=== PATIENT | female | born 1985 | race Caucasian/White ===

== ENCOUNTER 2018-03-29 14:41 | Outpatient (CLI) | payer BC, MEDICAID ==
[2018-03-29 15:40] LABS: APPEARANCE,URINE SLIGHTLY-CLOUDY; BILIRUBIN,URINE NEGATIVE (NEGATIVE); COLOR,URINE YELLOW; GLUCOSE, URINE NEGATIVE (NEGATIVE); KETONES,URINE NEGATIVE (NEGATIVE); LEUKOCYTE ESTERASE,URINE NEGATIVE (NEGATIVE); NITRITE,URINE NEGATIVE (NEGATIVE); PROTEIN,URINE NEGATIVE (NEGATIVE); URINE SPECIFIC GRAVITY 1.013
[2018-03-29 15:43] LABS: ABSOLUTE BASOPHILS # (AUTO) 0.1 10^3/uL (0.0-0.2); ABSOLUTE EOSINOPHILS # (AUTO) 0.2 10^3/uL (0.0-0.6); ABSOLUTE LYMPHOCYTES (AUTO) 1.6 10^3/uL (0.5-4.7); ABSOLUTE MONOCYTES (AUTO) 0.6 10^3/uL (0.1-1.4); ABSOLUTE NEUT (AUTO) 9.2 10^3/uL (1.7-8.2); BASOPHILS % (AUTO) 1.1 % (0-2); EOSINOPHILS % (AUTO) 1.8 % (0-6); HEMATOCRIT 36.9 % (36.0-47.0); HEMOGLOBIN 12.9 g/dL (12.0-15.5); LYMPHOCYTES % (AUTO) 13.3 % (13-45); MEAN CORPUSCULAR HEMOGLOBIN 31.9 pg (27.0-33.4); MEAN CORPUSCULAR HGB CONC 35.1 g/dL (32.0-36.0); MEAN CORPUSCULAR VOLUME 91 fl (80-97); MONOCYTES % (AUTO) 4.9 % (3-13); PLATELET COUNT 263 10^3/uL (150-450); RED BLOOD COUNT 4.05 10^6/uL (3.72-5.28); RED CELL DISTRIBUTION WIDTH 13.8 % (11.5-14.0); SEGMENTED NEUTROPHILS % (AUTO) 78.9 % (42-78); TOTAL CELLS COUNTED % (AUTO) 100 %; WHITE BLOOD COUNT 11.7 10^3/uL (4.0-10.5)
[2018-03-29 15:47] LABS: URINE AMPHETAMINES SCREEN NEGATIVE; URINE BARBITURATES SCREEN NEGATIVE; URINE BENZODIAZEPINES SCREEN NEGATIVE; URINE COCAINE SCREEN NEGATIVE; URINE MARIJUANA (THC) SCREEN NEGATIVE; URINE METHADONE SCREEN NEGATIVE; URINE PHENCYCLIDINE SCREEN NEGATIVE
[2018-03-29 15:51] LABS: UR PRO/CREAT RATIO RESULT 0.2 mg/mg (0.0-0.2); URINE CREATININE 83.7 mg/dL (16-327); URINE PROTEIN 12.9 mg/dL (<12)
[2018-03-29 15:58] LABS: ALANINE AMINOTRANSFERASE 24 U/L (9-52); ALBUMIN 3.2 g/dL (3.5-5.0); ALKALINE PHOSPHATASE 161 U/L (38-126); ANION GAP 10 (5-19); ASPARTATE AMINO TRANSFERASE 15 U/L (14-36); BILIRUBIN,DIRECT 0.1 mg/dL (0.0-0.4); BILIRUBIN,TOTAL 0.1 mg/dL (0.2-1.3); BLOOD UREA NITROGEN 3 mg/dL (7-20); CALCIUM 10.1 mg/dL (8.4-10.2); CARBON DIOXIDE 24 mmol/L (22-30); CHLORIDE 108 mmol/L (98-107); GLUCOSE 102 mg/dL (75-110); LDH 360 U/L (313-618); POTASSIUM 3.8 mmol/L (3.6-5.0); SODIUM 141.6 mmol/L (137-145); URIC ACID 4.8 mg/dL (2.5-6.2)
== END 2018-03-29 16:40 | disposition home or self-care (01) ==
LOC: LC 14:41
PROVIDERS: ATTEND Obstetrics & Gynecology
PROC: 4A1HXCZ Monitoring of Products of Conception, Cardiac Rate, External Approach (ICD-10-PCS; principal; 2018-03-29)
DX: O16.2 Unspecified maternal hypertension, second trimester (principal); Z3A.26 26 weeks gestation of pregnancy
CPT/HCPCS: 36415; 80053; 80307; 81001; 82570; 83615; 84156; 84550; 85025

== ENCOUNTER 2018-05-23 17:14 | Outpatient (CLI) | payer BC, MEDICAID ==
[2018-05-23 17:50] LABS: ABSOLUTE BASOPHILS # (AUTO) 0.1 10^3/uL (0.0-0.2); ABSOLUTE EOSINOPHILS # (AUTO) 0.1 10^3/uL (0.0-0.6); ABSOLUTE LYMPHOCYTES (AUTO) 1.8 10^3/uL (0.5-4.7); ABSOLUTE MONOCYTES (AUTO) 0.4 10^3/uL (0.1-1.4); BASOPHILS % (AUTO) 1.1 % (0-2); EOSINOPHILS % (AUTO) 1.4 % (0-6); HEMATOCRIT 41.5 % (36.0-47.0); HEMOGLOBIN 14.7 g/dL (12.0-15.5); LYMPHOCYTES % (AUTO) 16.9 % (13-45); MEAN CORPUSCULAR HEMOGLOBIN 32.6 pg (27.0-33.4); MEAN CORPUSCULAR HGB CONC 35.4 g/dL (32.0-36.0); MEAN CORPUSCULAR VOLUME 92 fl (80-97); MONOCYTES % (AUTO) 4.2 % (3-13); PLATELET COUNT 219 10^3/uL (150-450); RED BLOOD COUNT 4.51 10^6/uL (3.72-5.28); RED CELL DISTRIBUTION WIDTH 13.9 % (11.5-14.0); SEGMENTED NEUTROPHILS % (AUTO) 76.4 % (42-78); TOTAL CELLS COUNTED % (AUTO) 100 %; WHITE BLOOD COUNT 10.5 10^3/uL (4.0-10.5)
[2018-05-23 17:55] LABS: APPEARANCE,URINE CLEAR; BILIRUBIN,URINE NEGATIVE (NEGATIVE); COLOR,URINE YELLOW; GLUCOSE, URINE NEGATIVE (NEGATIVE); KETONES,URINE NEGATIVE (NEGATIVE); LEUKOCYTE ESTERASE,URINE NEGATIVE (NEGATIVE); NITRITE,URINE NEGATIVE (NEGATIVE); PROTEIN,URINE 30 mg/dL (NEGATIVE); URINE SPECIFIC GRAVITY 1.013; UROBILINOGEN,URINE NEGATIVE mg/dL (<2.0)
[2018-05-23 18:09] LABS: ALANINE AMINOTRANSFERASE 25 U/L (9-52); ALBUMIN 3.1 g/dL (3.5-5.0); ALKALINE PHOSPHATASE 301 U/L (38-126); ANION GAP 9 (5-19); ASPARTATE AMINO TRANSFERASE 28 U/L (14-36); BILIRUBIN,DIRECT 0.2 mg/dL (0.0-0.4); BILIRUBIN,TOTAL 0.3 mg/dL (0.2-1.3); BLOOD UREA NITROGEN 8 mg/dL (7-20); CALCIUM 9.8 mg/dL (8.4-10.2); CARBON DIOXIDE 22 mmol/L (22-30); CHLORIDE 105 mmol/L (98-107); GLUCOSE 83 mg/dL (75-110); POTASSIUM 3.9 mmol/L (3.6-5.0); SODIUM 135.9 mmol/L (137-145); TOTAL PROTEIN 6.3 g/dL (6.3-8.2); URIC ACID 6.1 mg/dL (2.5-6.2)
[2018-05-23 18:09] LABS: URINE AMPHETAMINES SCREEN NEGATIVE; URINE BARBITURATES SCREEN NEGATIVE; URINE BENZODIAZEPINES SCREEN NEGATIVE; URINE COCAINE SCREEN NEGATIVE; URINE MARIJUANA (THC) SCREEN NEGATIVE; URINE METHADONE SCREEN NEGATIVE; URINE PHENCYCLIDINE SCREEN NEGATIVE
[2018-05-23 18:19] LABS: UR PRO/CREAT RATIO RESULT 0.5 mg/mg (0.0-0.2); URINE CREATININE 67.9 mg/dL (16-327); URINE PROTEIN 36.7 mg/dL (<12)
--- NOTE | 2018-05-23 18:43 | Non Stress Test Report ---
Non Stress Test Datetime Report Generated by CPN: 05/23/2018 18:43 DEMOGRAPHIC Test Number: 1 EGA NST: 34.3 INDICATION Indication for Study: Ordered by Provider VITAL SIGNS RESP - NST: 16 MONITORING Monitor Explained: Monitor Explained; Test Explained; Patient Verbalized Understanding Time on Monitor: 05/23/2018 17:31 Time off Monitor: 05/23/2018 18:11 NST Duration: 40 NST INTERVENTIONS Physician Notified NST: Emmel, CNM BABY A: [id number] BABY A Movement : Present Contraction Frequency : 0 FHR Baseline : 120 Accelerations : 15X15 Decelerations : None Variability : Moderate 6-25bpm NST Review: Meets Criteria for Reactive NST NST Review and Verified By : YUDITH Fotser Results: Reactive NST REPORT Report Trigger: Send Report
[2018-05-24 20:07] LABS: URINE PROTEIN 39.3 mg/dL (<12)
[2018-05-24 20:10] LABS: 24 HOUR URINE PROTEIN RESULT 872 mg/day (42-225); 24 HR URINE CREAT RESULT 1.2 mg/day (0.8-2.0)
== END 2018-05-23 18:38 | disposition home or self-care (01) ==
LOC: LC 17:14
PROVIDERS: ATTEND Obstetrics & Gynecology Gynecology
PROC: 4A1HXCZ Monitoring of Products of Conception, Cardiac Rate, External Approach (ICD-10-PCS; principal; 2018-05-23)
DX: O16.3 Unspecified maternal hypertension, third trimester (principal); Z3A.34 34 weeks gestation of pregnancy
CPT/HCPCS: 36415; 59025; 80053; 80307; 81001; 82570; 84156; 84550; 85025

== ENCOUNTER 2018-06-05 12:06 | Inpatient (IN) | payer BC, MEDICAID ==
[2018-06-05 12:59] LABS: APPEARANCE,URINE CLEAR; BILIRUBIN,URINE NEGATIVE (NEGATIVE); COLOR,URINE YELLOW; GLUCOSE, URINE NEGATIVE (NEGATIVE); KETONES,URINE NEGATIVE (NEGATIVE); LEUKOCYTE ESTERASE,URINE NEGATIVE (NEGATIVE); NITRITE,URINE NEGATIVE (NEGATIVE); PROTEIN,URINE 100 mg/dL (NEGATIVE); URINE SPECIFIC GRAVITY 1.009; UROBILINOGEN,URINE NEGATIVE mg/dL (<2.0)
[2018-06-05 13:18] LABS: ABSOLUTE EOSINOPHILS # (AUTO) 0.1 10^3/uL (0.0-0.6); ABSOLUTE LYMPHOCYTES (AUTO) 1.3 10^3/uL (0.5-4.7); ABSOLUTE MONOCYTES (AUTO) 0.4 10^3/uL (0.1-1.4); ABSOLUTE NEUT (AUTO) 5.9 10^3/uL (1.7-8.2); BASOPHILS % (AUTO) 0.5 % (0-2); EOSINOPHILS % (AUTO) 1.5 % (0-6); HEMOGLOBIN 14.2 g/dL (12.0-15.5); LYMPHOCYTES % (AUTO) 17.3 % (13-45); MEAN CORPUSCULAR HGB CONC 34.7 g/dL (32.0-36.0); MEAN CORPUSCULAR VOLUME 92 fl (80-97); MONOCYTES % (AUTO) 5.2 % (3-13); PLATELET COUNT 191 10^3/uL (150-450); RED BLOOD COUNT 4.45 10^6/uL (3.72-5.28); RED CELL DISTRIBUTION WIDTH 13.4 % (11.5-14.0); SEGMENTED NEUTROPHILS % (AUTO) 75.5 % (42-78); TOTAL CELLS COUNTED % (AUTO) 100 %; WHITE BLOOD COUNT 7.8 10^3/uL (4.0-10.5)
[2018-06-05 13:19] LABS: URINE AMPHETAMINES SCREEN NEGATIVE; URINE BARBITURATES SCREEN NEGATIVE; URINE BENZODIAZEPINES SCREEN NEGATIVE; URINE COCAINE SCREEN NEGATIVE; URINE MARIJUANA (THC) SCREEN NEGATIVE; URINE METHADONE SCREEN NEGATIVE; URINE PHENCYCLIDINE SCREEN NEGATIVE
[2018-06-05 13:23] LABS: URINE CREATININE 43.1 mg/dL (16-327); URINE PROTEIN 127.8 mg/dL (<12)
--- NOTE | 2018-06-05 13:34 | Non Stress Test Report ---
Non Stress Test Datetime Report Generated by CPN: 06/05/2018 13:34 DEMOGRAPHIC EGA NST: 36.2 INDICATION Indication for Study: Gestational Hypertension; Ordered by Provider VITAL SIGNS Temperature - NST: 98.7 Pulse - NST: 90 RESP - NST: 18 NBPSYS NST: 139 NBPDIA NST: 85 MONITORING Monitor Explained: Monitor Explained; Test Explained; Patient Verbalized Understanding Time on Monitor: 06/05/2018 12:30 Time off Monitor: 06/05/2018 13:26 NST Duration: 56 NST INTERVENTIONS NST Interventions: PO Hydration; Reposition Patient Physician Notified NST: J COLEY, CNM BABY A: [id number] BABY A Movement : Present Contraction Frequency : ONNE FHR Baseline : 125 Accelerations : 15X15 Decelerations : None Variability : Moderate 6-25bpm NST Review: Meets Criteria for Reactive NST NST Review and Verified By : Juan R Chavarria RN NSMiryam Results: Reactive NST REPORT Report Trigger: Send Report
[2018-06-05 13:47] LABS: ALANINE AMINOTRANSFERASE 23 U/L (9-52); ALBUMIN 2.8 g/dL (3.5-5.0); ALKALINE PHOSPHATASE 276 U/L (38-126); ANION GAP 8 (5-19); ASPARTATE AMINO TRANSFERASE 24 U/L (14-36); BILIRUBIN,DIRECT 0.2 mg/dL (0.0-0.4); BILIRUBIN,TOTAL 0.2 mg/dL (0.2-1.3); BLOOD UREA NITROGEN 6 mg/dL (7-20); CALCIUM 9.4 mg/dL (8.4-10.2); CARBON DIOXIDE 22 mmol/L (22-30); CHLORIDE 106 mmol/L (98-107); GLUCOSE 75 mg/dL (75-110); POTASSIUM 4.2 mmol/L (3.6-5.0); SODIUM 135.8 mmol/L (137-145); TOTAL PROTEIN 5.8 g/dL (6.3-8.2); URIC ACID 6.1 mg/dL (2.5-6.2)
--- NOTE | 2018-06-05 14:15 | PDOC H&P ---
History of Present Illness Admission Date/PCP: JEWELL CARRERA MD Patient complains of: Elevated BP's Pre-Eclampsia, 36.2 History of Present Illness: SHERIN FREGOSO is a 32 year old female Past Medical History Cardiac Medical History: Reports: Hypertension - no meds x 6 months Denies: Coronary Artery Disease, Myocardial Infarction Pulmonary Medical History: Reports: Bronchitis - as child Denies: Asthma, Chronic Obstructive Pulmonary Disease (COPD), Pneumonia Neurological Medical History: Denies: Seizures Musculoskeltal Medical History: Denies: Arthritis Social History Smoking Status: Never Smoker Family History Family History: Reviewed & Not Pertinent Parental Family History Reviewed: Yes Children Family History Reviewed: Unknown Sibling(s) Family History Reviewed.: Unknown Medication/Allergy Home Medications: Acetaminophen [Tylenol Extra Strength 500 mg Tablet] 2 tab PO ASDIR PRN Calcium Carbonate [Tums Chewable 500 mg Tab.chew] 2 tab PO ASDIR PRN 03/29/18 No122/Iron/Folic Acid [ Multi Tablet] 1 tab PO DAILY 03/29/18 Allergies/Adverse Reactions: latex [Latex] Allergy (Severe, Verified 06/05/18 13:38) skin irritation Physical Exam - Physical Exam Vital Signs: Intake & Output 06/04/18 06/05/18 06/06/18 06:59 06:59 06:59 Weight 94.2 kg General appearance: PRESENT: no acute distress, cooperative Musculoskeletal exam: PRESENT: ambulatory Neurological exam: PRESENT: alert, awake, oriented to person, oriented to place Psychiatric exam: PRESENT: appropriate affect Skin exam: PRESENT: normal color Additional comments: abd soft, uterus, Cat 1 strip - Obstetrical Exam External Genitalia: not examined Vagina: not examined Tender: No Adhexa: normal Result Laboratory Results: 06/05/18 12:58 06/05/18 12:58 06/05/18 06/05/18 06/05/18 12:16 12:58 12:58 WBC 7.8 RBC 4.45 Hgb 14.2 Hct 41.0 MCV 92 MCH 32.0 MCHC 34.7 RDW 13.4 Plt Count 191 Seg Neutrophils % 75.5 Lymphocytes % 17.3 Monocytes % 5.2 Eosinophils % 1.5 Basophils % 0.5 Absolute Neutrophils 5.9 Absolute Lymphocytes 1.3 Absolute Monocytes 0.4 Absolute Eosinophils 0.1 Absolute Basophils 0.0 Sodium 135.8 L Potassium 4.2 Chloride 106 Carbon Dioxide 22 Anion Gap 8 BUN 6 L Creatinine 0.56 Est GFR ( Amer) > 60 Est GFR (Non-Af Amer) > 60 Glucose 75 Uric Acid 6.1 Calcium 9.4 Total Bilirubin 0.2 AST 24 ALT 23 Alkaline Phosphatase 276 H Total Protein 5.8 L Albumin 2.8 L Urine Color YELLOW Urine Appearance CLEAR Urine pH 8.0 Ur Specific [place] 1.009 Urine Protein 100 H Urine Glucose (UA) NEGATIVE Urine Ketones NEGATIVE Urine Blood NEGATIVE Urine Nitrite NEGATIVE Ur Leukocyte Esterase NEGATIVE Urine WBC (Auto) 1 Urine RBC (Auto) 0 Assessment & Plan - Diagnosis (1) Pre-eclampsia affecting , antepartum Is this a current diagnosis for this admission?: Yes Plan: 23 hour observation, monitor BP's and Pre-Eclampsia, 36.2 weeks - Plan Summary Plan Summary: Monitor on 2nd floor for Pre-Eclampsia and elevated BP's in office
[2018-06-05] MEDS ORDERED: ACETAMINOPHEN 325 MG TABLET PO ONE (20:49)
[2018-06-05] MEDS ORDERED: ACETAMINOPHEN 325 MG TABLET ONE (20:51)
[2018-06-05] MEDS ORDERED: ZOLPIDEM TARTRATE 5 MG TABLET PO PRN (21:53)
[2018-06-05] MEDS ORDERED: RINGERS SOLUTION,LACTATED 300 ML IV ONE (21:53)
[2018-06-05] MEDS ORDERED: ACETAMINOPHEN 325 MG TABLET PO PRN (21:53)
[2018-06-05] MEDS ORDERED: OXYTOCIN/NORMAL SALINE 20 UNIT/1,000 ML RTUINJ IV PRN (21:53)
[2018-06-05] MEDS ORDERED: DINOPROSTONE 10 MG VAGINAL INSERT.SR PV PRN (21:53)
[2018-06-05] MEDS ORDERED: MAGNESIUM SULFATE 20 GM/500 ML RTUINJ IV ONE (22:25)
[2018-06-05] MEDS ORDERED: DINOPROSTONE 10 MG VAGINAL INSERT.SR ONE (22:26)
[2018-06-05] MEDS: MAGNESIUM SULFATE 20 GM/500 ML RTUINJ IV PRN (22:39)
[2018-06-05] MEDS: RINGERS SOLUTION,LACTATED 1,000 ML IV PRN (22:41)
[2018-06-06] MEDS ORDERED: MAGNESIUM SULFATE 20 GM/500 ML RTUINJ IV ONE ×2 (08:03→18:44)
[2018-06-06] MEDS ORDERED: ACETAMINOPHEN 325 MG TABLET ONE (08:31)
[2018-06-06] MEDS ORDERED: PENICILLIN G-K 5 MILLION UNIT VIAL ONE (08:52)
--- NOTE | 2018-06-06 08:56 | L&D Progress Notes ---
PROGRESS NOTES Datetime Report Generated by CPN: 06/06/2018 08:56 PROGRESS NOTE Impression: Normal Progression of Labor Procedures: Sterile Vag Exam Plan: Continue Present Management Vital Signs : Reviewed Vital Signs Comments: on Magnesium Comment: Cervidil removed, start PCN prophylaxis for unk GBS continue magnesium, received tylenol for meade, c/o blurred vision VAGINAL EXAM Dilatation: 3 Effacement: 70 Station: -1 MEMBRANES Membranes: Intact FETUS A FHR - Baseline: 130 Monitoring: External US Variability: Moderate 6-25bpm Decelerations: None FHR Category: Category I : 36.3 SIGNATURE SIGNATURE: [id number];[id number] SIGNATURE: [id number] SIGNATURE: [id number] Assignment: Raúl Argeulles MD Signature: with User ID: [email or web address] : with User ID: Carol
--- NOTE | 2018-06-06 09:11 | Admission Physical ---
Datetime Report Generated by CPN: 06/06/2018 09:11 CURRENT ADMISSION Chief Complaint: Sent from OB Office for Evaluation and Treatment - Please Specify Indication for Induction: PreEclampsia Admit Impression : , Intrauterine Admit Plan: Admit to Unit; Initiate Labor Induction Protocol Admit Plan- Other: seen in office yesterday, BP 161/103 with 2+prot GBS cultures collected yesterday--unavailable ALLERGIES Medication Allergies: No Medication Allergies: latex/SV/skin irritation (06/05/2018) Latex: Latex Allergies Food Allergies: NONE Environmental Allergies: NONE OBSTETRICAL HISTORY EDC: 07/01/2018 00:00 : 4 Para: 2 Term: 2 : 0 SAB: 1 IAB: 0 Ectopic: 0 Livin Cesareans: 0 VBACs: 0 Multiple Births: 0 Gestational Diabetes: No Rh Sensitization: No Incompetent Cervix: No BANG: No Infertility: No ART Treatment: No Uterine Anomaly: No IUGR: No Hx Previous C/S: No Macrosomia: No Hx Loss/Stillborn: No PIH: Yes Hx : Yes Placenta Previa/Abruption: No Depression/PP Depression: No PTL/PROM: No Post Hemorrhage: No Current Procedures: Ultrasound; NST Obstetrical History Comments: G1- 2001, 37 week , 5lbs 15oz female G2- 2006, 39 week , 7lbs 8oz male (baby from SIDS at 6weeks old) G3- 4 week SAB G4- current SEE RECORDS Alcohol: No Marijuana : No Cocaine: No Other Illicit Drugs: No Cigarettes: Current Everyday Smoker. 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 HISTORY Gonorrhea: No Genital Herpes: No Chlamydia: No Tuberculosis: No Syphilis: No Hepatitis: No HIV/AIDS Exposure: No Rash or Viral Illness: No HPV: No Infectious History Comments: TRICH- 2017 PHYSICAL EXAM General: Normal HEENT: Deferred Neurologic: Normal Thyroid: Deferred Heart: Normal Lungs: Normal Breast: Deferred Back: Deferred Abdomen: Normal Genitourinary Exam: Normal Extremities: Normal DTRs: Normal Pelvic Type: Adequate Physical Exam Comments: Mag started 2239 VAGINAL EXAM Dilatation: 3 Effacement: 70 Station: -1 MEMBRANES Membranes: Intact FETUS A EGA: 36.3 Variability: Moderate 6-25bpm Accelerations: 15X15 Decelerations: None Admit Comment: Cervidil removed, pt appears to be laboring start PCN prophylaxis augment with pitocin as necessary, plan reviewed with Dr. Arguelles PLANS FOR LABOR AND DELIVERY Labor and Delivery: None Pain Management: None Feeding Preference: Breast Benefit of Breast Feed Discussed: Yes Circumcision: Yes INFORMED CONSENT Assignment: Raúl Arguelles MD Signature: with User ID: [email or web address] : with User ID: Carol
[2018-06-06] MEDS ORDERED: PENICILLIN G-K 5 MILLION UNIT VIAL IV ONE (09:12)
[2018-06-06] MEDS ORDERED: CETIRIZINE 10 MG TABLET PO PRN (09:18)
[2018-06-06 09:43] LABS: HEMATOCRIT 44.4 % (36.0-47.0); HEMOGLOBIN 15.2 g/dL (12.0-15.5); MEAN CORPUSCULAR HEMOGLOBIN 31.8 pg (27.0-33.4); MEAN CORPUSCULAR HGB CONC 34.2 g/dL (32.0-36.0); MEAN CORPUSCULAR VOLUME 93 fl (80-97); PLATELET COUNT 227 10^3/uL (150-450); RED BLOOD COUNT 4.78 10^6/uL (3.72-5.28); RED CELL DISTRIBUTION WIDTH 13.6 % (11.5-14.0); WHITE BLOOD COUNT 11.5 10^3/uL (4.0-10.5)
[2018-06-06] MEDS ORDERED: PRENATAL VITAMIN W DHA CAPSULE PO SCH (10:00)
[2018-06-06 10:03] LABS: ALANINE AMINOTRANSFERASE 28 U/L (9-52); ALBUMIN 3.2 g/dL (3.5-5.0); ALKALINE PHOSPHATASE 349 U/L (38-126); ANION GAP 8 (5-19); ASPARTATE AMINO TRANSFERASE 24 U/L (14-36); BILIRUBIN,DIRECT 0.2 mg/dL (0.0-0.4); BILIRUBIN,TOTAL 0.4 mg/dL (0.2-1.3); BLOOD UREA NITROGEN 5 mg/dL (7-20); CARBON DIOXIDE 21 mmol/L (22-30); CHLORIDE 105 mmol/L (98-107); GLUCOSE 87 mg/dL (75-110); POTASSIUM 4.4 mmol/L (3.6-5.0); SODIUM 134.1 mmol/L (137-145); TOTAL PROTEIN 6.2 g/dL (6.3-8.2); URIC ACID 5.9 mg/dL (2.5-6.2)
[2018-06-06] MEDS ORDERED: FENTANYL/BUPIVACAINE/NS/PF 200 MCG/100 ML RTUINJ EPI PRN (10:46)
[2018-06-06] MEDS ORDERED: BUPIVACAINE HCL 0.25 % INJ/PF (2.5 MG/1 ML) 30 ML VIAL INFIL ONE ×2 (10:46→11:30)
[2018-06-06] MEDS ORDERED: BENZOIN/ALOE VERA/STORAX/TOLU TINCTURE 60 ML TP PRN (10:46)
[2018-06-06] MEDS ORDERED: ACETAMINOPHEN 650 MG SUPP.RECT PR PRN ×2 (11:05→11:21)
[2018-06-06] MEDS ORDERED: DIBUCAINE 1% OINTMENT 28 GM TP PRN ×2 (11:05→11:19)
[2018-06-06] MEDS ORDERED: PROMETHAZINE HCL 25 MG SUPP.RECT PR PRN ×2 (11:05→11:20)
[2018-06-06] MEDS ORDERED: DIPHENHYDRAMINE HCL 25 MG CAPSULE PO PRN ×2 (11:05→11:20)
[2018-06-06] MEDS ORDERED: ACETAMINOPHEN WITH CODEINE #3 TABLET PO PRN ×2 (11:05→11:19)
[2018-06-06] MEDS ORDERED: OXYTOCIN/NORMAL SALINE 1,000 ML IV PRN (11:05)
[2018-06-06] MEDS ORDERED: MAGNESIUM HYDROXIDE SUSP 30 ML UDCUP PO PRN ×2 (11:05→11:21)
[2018-06-06] MEDS ORDERED: PSEUDOEPHEDRINE HCL 30 MG TABLET PO PRN ×2 (11:05→11:20)
[2018-06-06] MEDS ORDERED: PROMETHAZINE HCL 25 MG TABLET PO PRN ×2 (11:05→11:22)
[2018-06-06] MEDS ORDERED: BENZOCAINE/MENTHOL AEROSOL SPRAY 56 ML TOP PRN ×2 (11:05→11:19)
[2018-06-06] MEDS ORDERED: MEASLES,MUMPS&RUBELLA VACC/PF 0.5 ML VIAL SUBCUT PRN ×2 (11:05→11:19)
[2018-06-06] MEDS ORDERED: DIPH/PERTUSS(ACELL)/TETANUS VAC/PF 0.5 ML SYR (>=10YO) IM PRN ×2 (11:05→11:20)
[2018-06-06] MEDS ORDERED: PROMETHAZINE HCL INJ 25 MG/1 ML VIAL IV PRN (11:05)
[2018-06-06] MEDS ORDERED: ZOLPIDEM TARTRATE 5 MG TABLET PO PRN ×2 (11:05→11:19)
[2018-06-06] MEDS ORDERED: NA PHOS,M-B/NA PHOS,DI-BA (ADULT) 133 ML ENEMA PR PRN ×2 (11:05→11:21)
[2018-06-06] MEDS ORDERED: GLYCERIN/WITCH HAZEL LEAF 1 EACH MED..PAD TP PRN ×2 (11:05→11:20)
--- NOTE | 2018-06-06 11:08 | PDOC DELIVERY SUMMARY ---
Delivery Summary - Maternal Risk Factors: Labor <37 wks, Induced HTN, Pre- Eclampsia Ruptured Membranes: SROM Fluids: Clear - Delivery Labor: Augmentation, Precipitous-Less Than 3 Hours Presentation: Vertex Uterine Contraction Monitoring: External Support Person Present: Yes Placenta: Within Normal Limits Nuchal Cord: No
[2018-06-06] MEDS ORDERED: OXYTOCIN/NORMAL SALINE 20 UNIT/1,000 ML RTUINJ IV PRN (11:20)
[2018-06-06] MEDS ORDERED: IBUPROFEN 800 MG TABLET ONE ×2 (11:51→22:10)
[2018-06-06] MEDS ORDERED: ACETAMINOPHEN WITH CODEINE #3 TABLET ONE ×2 (12:33→16:58)
[2018-06-06] MEDS ORDERED: PENICILLIN G-K 5 MILLION UNIT VIAL IV SCH (13:00)
[2018-06-06] MEDS ORDERED: IBUPROFEN 800 MG TABLET PO SCH (14:00)
[2018-06-06] MEDS ORDERED: FERROUS SULFATE 325 MG TABLET PO SCH (18:00)
[2018-06-06] MEDS ORDERED: DOCUSATE SODIUM 100 MG CAPSULE PO SCH (18:00)
[2018-06-06] MEDS ORDERED: OXYTOCIN/NORMAL SALINE 20 UNIT/1,000 ML RTUINJ ONE (19:29)
[2018-06-06] MEDS: IBUPROFEN 800 MG TABLET PO SCH ×2 (20:48→22:13)
[2018-06-06] MEDS ORDERED: FAMOTIDINE 20 MG TABLET PO SCH (22:00)
[2018-06-06] MEDS ORDERED: FAMOTIDINE 20 MG TABLET ONE (22:09)
[2018-06-06] MEDS ORDERED: DOCUSATE SODIUM 100 MG CAPSULE ONE (22:09)
[2018-06-06] MEDS ORDERED: FERROUS SULFATE 325 MG TABLET PO ONE (22:10)
[2018-06-06] MEDS: FAMOTIDINE 20 MG TABLET PO SCH (22:12)
[2018-06-06] MEDS: FERROUS SULFATE 325 MG TABLET PO SCH (22:13)
[2018-06-06] MEDS: DOCUSATE SODIUM 100 MG CAPSULE PO SCH (22:13)
[2018-06-06] MEDS ORDERED: ZOLPIDEM TARTRATE 5 MG TABLET ONE (23:16)
[2018-06-06] MEDS ORDERED: HYDRALAZINE HCL INJ/PF 20 MG/1 ML SDV ONE (23:26)
[2018-06-07] MEDS ORDERED: MAGNESIUM SULFATE 20 GM/500 ML RTUINJ IV ONE (04:52)
[2018-06-07] MEDS: RINGERS SOLUTION,LACTATED 1,000 ML IV PRN (04:58)
[2018-06-07] MEDS: MAGNESIUM SULFATE 20 GM/500 ML RTUINJ IV PRN (04:58)
[2018-06-07 07:16] LABS: HEMOGLOBIN 14.6 g/dL (12.0-15.5); MEAN CORPUSCULAR HEMOGLOBIN 32.2 pg (27.0-33.4); MEAN CORPUSCULAR HGB CONC 34.7 g/dL (32.0-36.0); MEAN CORPUSCULAR VOLUME 93 fl (80-97); PLATELET COUNT 215 10^3/uL (150-450); RED BLOOD COUNT 4.53 10^6/uL (3.72-5.28); RED CELL DISTRIBUTION WIDTH 13.6 % (11.5-14.0)
[2018-06-07] MEDS ORDERED: SENNOSIDES/DOCUSATE 8.6-50 MG 1 EACH TABLET PO SCH (10:00)
[2018-06-07] MEDS ORDERED: PRENATAL VITAMIN W DHA CAPSULE PO SCH (10:00)
[2018-06-07] MEDS ORDERED: NIFEDIPINE 30 MG TAB.ER.24 PO ONE (13:28)
--- NOTE | 2018-06-07 15:41 | Delivery Summary ---
Del Sum A-C Datetime Report Generated by CPN: 06/07/2018 15:41 DELIVERY PERSONNEL DELIVERY PERSONNEL: [id number] Delivery Doctor:: Raúl Arguelles MD Labor and Delivery Nurse:: Raina Kaba RN Labor and Delivery Nurse:: ARTHUR Jackson Official Greeter/AFFILIATE MARKETING COORDINATOR: Sadie Negraekom, COMMUNICATION SPECIALIST MATERNAL INFORMATION Delivery Anesthesia: None Medications After Delivery: Pitocin Bolus-Please Comment; Pitocin Drip 20 Units/1000ml NSS Maternal Complications: Precipitous Labor (<3hrs) LABOR SUMMARY EDC: 07/01/2018 00:00 No. Babies in Womb: 1 Attempted: No Labor Anesthesia: None LABOR INFORMATION Reason for Induction: Pre-Eclampsia Onset of Labor: 06/06/2018 08:30 Complete Dilatation: 06/06/2018 10:52 Cervical Ripening Agents: Cervidil Oxytocin: N/A Group B Beta Strep: unknown Antibiotics # of Doses: 1 Antibiotics Time of Last Dose: 899 Name of Antibiotic Given: PENICILLIN G Steroids Given: None Reason Steroids Not Administered: Not Applicable MEMBRANES Membranes Rupture Method: Spontaneous Rupture of Membranes: 06/06/2018 09:55 Length of Rupture (hr): 0.95 Amniotic Fluid Color: Clear Amniotic Fluid Amount: Small Amniotic Fluid Odor: Normal STAGES OF LABOR Stage 1 hr: 2 Stage 1 min: 22 Stage 2 hr: 0 Stage 2 min: 0 Stage 3 hr: 0 Stage 3 min: 7 Total Time in Labor hr: 2 Total Time in Labor min: 29 VAGINAL DELIVERY Episiotomy: None Laceration #1: None Laceration Extension #1: N/A Laceration Repair: Not Applicable BABY A INFORMATION Delivery Date/Time: 06/06/2018 10:52 Method of Delivery: Vaginal Born in Route : No : N/A Forceps: N/A Vacuum Extraction: N/A Shoulder Dystocia : No PRESENTATION/POSITION BABY A Presentation: Cephalic Cephalic Presentation: Vertex Breech Presentation: N/A PLACENTA INFORMATION BABY A Placenta Delivery Time : 06/06/2018 10:59 Placenta Method of Delivery: Spontaneous Placenta Status: Delivered SCORES BABY A Heart Rate 1 min: >100 bpm Resp Effort 1 min: Good Cry Reflex Irritability 1 min: Cough or Sneeze or Pulls Away Muscle Tone 1 min: Active Motion Color 1 min: Blue/Pale Resuscitation Effort 1 min: Tactile Stimulation SCORE 1 MIN: 8 Heart Rate 5 min: >100 bpm Resp Effort 5 min: Good Cry Reflex Irritability 5 min: Cough or Sneeze or Pulls Away Muscle Tone 5 min: Active Motion Color 5 min: Body [place], Extremities Blue Resuscitation Effort 5 min: Tactile Stimulation SCORE 5 MIN: 9 INFANT INFORMATION BABY A Gestational Age at Delivery: 36.3 Gestational Status: Late - 34- 36.6 Weeks Infant Outcome : Liveborn Condition : Stable Infant Sex: Male IDENTIFICATION BABY A Infant Verification Date/Time: 06/06/2018 11:27 ID Band Number: [id number] Mother's Name Verified: Yes RN Verifying Infant: Tristen Miller RN/S Elias AFFILIATE MARKETING COORDINATOR WEIGHT/LENGTH BABY A Infant Birthweight (gm): 2380 Infant Weight (lb): 5 Weight (oz): 4 Length (in): 18.00 Infant Length (cm): 45.72 CORD INFORMATION BABY A No. Cord Vessels: 3 Nuchal Cord : N/A Cord Blood Taken: Yes-For Storage ([facility] Blood type +) Infant Suction: None ASSESSMENT BABY A Infant Complications: None Physical Findings at Delivery: Within Normal Limits Infant Respirations: Appears Normal Skin to Skin: Yes Skin to Skin Time (min): 80 Cytometry Technologist/ALS Called : No Transferred To: Nursery BABY B INFORMATION : N/A SIGNATURES Signature: with User ID: [email or web address] : Jaylon was personally available for consultation and serving as supervising physician for the P.
--- NOTE | 2018-06-07 15:56 | L&D Progress Notes ---
PROGRESS NOTES Datetime Report Generated by CPN: 06/07/2018 15:55 PROGRESS NOTE Comment: Pt with very good UOP and mild range BPs. Pt with no symptoms. Procardia started. Mag Sulfate stopped at 1100. Will continue to monitor on the floor. FETUS C SIGNATURE: [id number];[id number];[id number];[id number] SIGNATURE: [id number];[id number];[id number];[id number] SIGNATURE: [id number];[id number];[id number] Signature: with User ID: [email or web address]
[2018-06-07] MEDS: FERROUS SULFATE 325 MG TABLET PO SCH (18:43)
[2018-06-08] MEDS: IBUPROFEN 800 MG TABLET PO SCH ×3 (02:52→10:25)
[2018-06-08] MEDS: FAMOTIDINE 20 MG TABLET PO SCH ×3 (02:52→10:28)
[2018-06-08 07:49] VITALS: BP 141/90
[2018-06-08] MEDS: SENNOSIDES/DOCUSATE 8.6-50 MG 1 EACH TABLET PO SCH ×2 (10:23→10:26)
[2018-06-08] MEDS: DOCUSATE SODIUM 100 MG CAPSULE PO SCH ×3 (10:23→10:26)
[2018-06-08] MEDS: PRENATAL VITAMIN W DHA CAPSULE PO SCH ×2 (10:23→10:28)
[2018-06-08] MEDS: NIFEDIPINE 30 MG TAB.ER.24 PO SCH ×2 (10:24→10:28)
[2018-06-08] MEDS: FERROUS SULFATE 325 MG TABLET PO SCH (10:26)
--- NOTE | 2018-06-08 10:34 | PDOC DISCHARGE SUMMARY ---
Final Diagnosis Discharge Date: 06/08/18 - Final Diagnosis (1) Normal vaginal delivery Is this a current diagnosis for this admission?: Yes (2) Pre-eclampsia affecting , antepartum Is this a current diagnosis for this admission?: Yes Discharge Data - Discharge Medication Prescriptions: Ibuprofen [Motrin 800 mg Tablet] 800 mg PO Q8HP PRN #90 tablet PRN Reason: Nifedipine [Procardia XL 30 mg Tablet] 30 mg PO DAILY #30 tab.er.24 Home Medications: Acetaminophen [Tylenol Extra Strength 500 mg Tablet] 2 tab PO ASDIR PRN Calcium Carbonate [Tums Chewable 500 mg Tab.chew] 2 tab PO ASDIR PRN 03/29/18 No122/Iron/Folic Acid [ Multi Tablet] 1 tab PO DAILY 03/29/18 Docusate Sodium [Colace] 1 tab PO DAILY 06/05/18 Ibuprofen [Motrin 800 mg Tablet] 800 mg PO Q8HP PRN #90 tablet 06/08/18 Nifedipine [Procardia XL 30 mg Tablet] 30 mg PO DAILY #30 tab.er.24 06/08/18 Intrapartum Procedure(s): Spontaneous Vaginal Delivery - Diagnosis Test Laboratory: Temp Pulse Resp BP Pulse Ox 98.5 F 98 16 141/90 H 100 06/08/18 07:46 06/08/18 07:46 06/08/18 07:46 06/08/18 07:46 06/08/18 07:46 06/05/18 06/05/18 06/06/18 12:16 12:58 09:30 RBC 4.45 4.78 Hgb 14.2 15.2 Hct 41.0 44.4 Urine Opiates Screen NEGATIVE 06/07/18 07:08 RBC 4.53 Hgb 14.6 Hct 42.0 Urine Opiates Screen - Discharge information/Instructions Discharge Activity: Balance Activity w/Rest, Pelvic Rest Discharge Diet: Regular Disposition: HOME, SELF-CARE Follow up with: [facility] in: 1, Weeks - for BP check
== END 2018-06-08 11:47 | disposition home or self-care (01) | DRG 775 ==
LOC: LC 12:06 → LR 14:16 → 2N 16:39 → LR 21:52 → OBSVTOIN 21:56 → 2S 06-07 15:52
PROVIDERS: ADMIT Obstetrics & Gynecology Gynecology; ATTEND Obstetrics & Gynecology Gynecology
PROC: 10E0XZZ Delivery of Products of Conception, External Approach (ICD-10-PCS; principal; 2018-06-06)
PROC: 4A1HXCZ Monitoring of Products of Conception, Cardiac Rate, External Approach (ICD-10-PCS; 2018-06-06)
DX: O14.94 Unspecified pre-eclampsia, complicating childbirth (principal); O60.14X0 Preterm labor third trimester with preterm delivery third trimester, not applicable or unspecified; O62.3 Precipitate labor; O99.334 Smoking (tobacco) complicating childbirth; F17.200 Nicotine dependence, unspecified, uncomplicated; Z91.041 Radiographic dye allergy status; Z90.49 Acquired absence of other specified parts of digestive tract; Z3A.36 36 weeks gestation of pregnancy; Z37.0 Single live birth
CPT/HCPCS: 36415; 59025; 80053; 80307; 81001; 82570; 83615; 83735; 84156; 84550; 85025; 85027; 86850; 86900; 86901; 88307; G0378; J0360; J2540; J2590; J3475; J3490